=== PATIENT | male | born 1955 ===

== ENCOUNTER 2021-02-12 09:12 | Outpatient (REF) | payer OTHER, SELFPAY ==
[2021-02-12 09:57] LABS: Anion Gap 18 (12-20); Blood Urea Nitrogen 30 mg/dL (9-16); Calcium 8.6 mg/dL (8.4-10.2); Carbon Dioxide 25 mmol/L (22-29); Chloride 100 mmol/L (96-108); Estimated Glomerular Filt Rate 10; Glucose Random 107 mg/dL (60-115); Potassium 3.7 mmol/L (3.3-5.1); Sodium 139 mmol/L (135-145)
== END 2021-02-12 09:13 | disposition home or self-care (01) ==
LOC: HO.MMNH1L 09:12
PROVIDERS: Visit Provider Family Medicine
DX: I10 Essential (primary) hypertension (principal)
CPT/HCPCS: 36415; 80048